=== PATIENT | female | born 1960 | race Caucasian/White ===

== ENCOUNTER 2023-02-01 15:00 | Emergency (ER) | payer BC, SELFPAY ==
--- NOTE | ~2023-02-01 | XR_ITS ---
EXAMINATION: XR knee LT min 4V DATE: 02/01/2023 15:22 INDICATION: Left knee pain, limited range of motion and popping when bending the knee post fall one h our prior TECHNIQUE: Anteroposterior, 2 oblique and crosstable lateral views of the left knee were obtained COMPARISON: None. FINDINGS: Cemented left total knee arthroplasty with patellar resurfacing which appears well seated in near-jesse tomic alignment. No fracture. No periprosthetic lucency to suggest loosening. Small left knee joint e ffusion without evident layering lipohemarthrosis. Small heterotopic ossicles in the distal quadricep s tendon. IMPRESSION: 1. Left total knee arthroplasty with small knee joint effusion but no acute osseous abnormality. Reviewed, dictated and finalized at location A. IMPRESSION: 1. Left total knee arthroplasty with small knee joint effusion but no acute oss eous abnormality.
[2023-02-01 15:02] VITALS: BP 147/90; PULSE 79; RESP 18; TEMP 36.6; O2SAT 100
--- NOTE | 2023-02-01 16:13 | ED.GENADULT ---
HPI - General Adult General Chief complaint: Extremity Injury, Lower Stated complaint: knee injury Time Seen by Provider: 02/01/23 15:45 History of Present Illness HPI narrative: 62-year-old female presented the emergency department for evaluation of left knee pain. Patient reports prior to arrival she was dancing and caught her foot on a carpet causing her to fall and land on her knee. Patient initially thought that she dislocated her knee but describes a patellar dislocation. Upon arrival to the emergency department patient has no deformity is neurovascular intact. X-ray shows no acute fracture or dislocation. Patient still does have increased pain at the knee. Patient denies any other pain or injury. Review of Systems Review of Systems: All systems reviewed & are unremarkable except as noted in HPI and below Exam Narrative: APPEARANCE: Well appearing, no pain, no distress, well-nourished. HEAD: normocephalic, atraumatic. EYES: PERRLA/EOMI, conjunctivae clear. NOSE: Normal no drainage NECK: Supple. No adenopathy, no masses. RESPIRATORY: Airway patent, respirations nonlabored. Clear to auscultation bilaterally, no rales, rhonchi, wheezing. CARDIOVASCULAR: Regular rate and rhythm without murmurs rubs or gallops. ABDOMINAL: Soft, nontender, nondistended, normal bowel sounds MUSCULOSKELETAL: Left knee tenderness to palpation with effusion NEURO: Alert. Cranial nerves II through XII intact. SKIN: Warm, dry. Normal Color Course Course Emergency Course: 62-year-old female presented ED for evaluation of left knee pain. X-ray shows no acute fracture dislocation. Patient was able to ambulate with a knee immobilizer in place. Patient was encouraged of close follow-up with her orthopedic surgeon at home in [place]. Patient was provided a prescription for a walker Vital Signs Vital signs: Vital Signs Temperature 98 F 02/01/23 15:02 Pulse Rate 79 02/01/23 15:02 Respiratory Rate 18 02/01/23 15:02 Blood Pressure 147/90 H 02/01/23 15:02 Pulse Oximetry 100 02/01/23 15:02 Oxygen Delivery Room Air 02/01/23 15:02 Temperature 98 F 02/01/23 15:02 Pulse Rate 79 02/01/23 15:02 Respiratory Rate 18 02/01/23 15:02 Blood Pressure 147/90 H 02/01/23 15:02 Pulse Oximetry 100 07/24/23 15:02 Oxygen Delivery Room Air 02/01/23 15:02 Medical Decision Making Differential Diagnosis Differential Diagnosis: Ligament injury, patellar injury, knee effusion, knee strain Vital Signs Vital Signs: Vital Signs Temperature 98 F 02/01/23 15:02 Pulse Rate 79 02/01/23 15:02 Respiratory Rate 18 02/01/23 15:02 Blood Pressure 147/90 H 02/01/23 15:02 Pulse Oximetry 100 02/01/23 15:02 Oxygen Delivery Room Air 02/01/23 15:02 Temperature 98 F 02/01/23 15:02 Pulse Rate 79 02/01/23 15:02 Respiratory Rate 18 02/01/23 15:02 Blood Pressure 147/90 H 02/01/23 15:02 Pulse Oximetry 100 02/01/23 15:02 Oxygen Delivery Room Air 02/01/23 15:02 Imaging Data Radiologist's impression: Impressions Knee X-Ray 02/01/23 15:30 IMPRESSION: 1. Left total knee arthroplasty with small knee joint effusion but no acute osseous abnormality. Discharge Plan Discharge Clinical Impression: Internal derangement of knee Patient Disposition: Home, Self-Care Condition: Stable Instructions: Antibiotic Form, Knee Immobilizer (ED) Additional Instructions: Knee immobilizer as directed for increased ability. I recommend using a walker for ambulation and decreased weightbearing on the left knee. Have close follow-up with your orthopedic surgeon. If you have any worsening symptoms please call or return to the emergency department. Prescriptions: New (DME) walker Misc See Rx Instructions .Route Qty: 1 0RF Rx Instructions: As directed Follow-up/Referrals: PHYSICIAN NOT ON STAFF,NONSTAFF [Primary Care Provider] -
== END 2023-02-01 16:22 | disposition home or self-care (01) ==
PROVIDERS: Emergency Provider Emergency Medicine
DX: M23.92 Unspecified internal derangement of left knee (principal); S89.92XA Unspecified injury of left lower leg, initial encounter; Z96.652 Presence of left artificial knee joint; W18.09XA Striking against other object with subsequent fall, initial encounter; Y93.41 Activity, dancing
CPT/HCPCS: 73564; 99283